=== PATIENT | female | born 1980 | race Two or more races ===

== ENCOUNTER → 2024-07-13 | Outpatient (CLI) | payer MEDICAID, SELFPAY ==
--- NOTE | 2024-07-13 13:00 | XR_ITS ---
Examination: Pelvic ultrasound, transabdominal, complete Technique: Transabdominal ultrasound of the pelvis performed using grayscale imaging Date and time of exam: July 13, 2024 at 1323 hours INDICATIONS: Left pelvic pain beginning 6 months ago FINDINGS: Uterus 11.4 cm endometrial stripe 1.4 cm No uterine mass or intrauterine gestation Right ovary 3.1 cm arterial flow small follicles Left ovary 3.8 cm arterial flow small follicles IMPRESSION: No uterine mass or intrauterine gestation
== END | disposition home or self-care (01) ==
LOC: CDIM 13:01
PROVIDERS: PCP Nurse Practitioner Primary Care; Referring Provider Nurse Practitioner Primary Care; Visit Provider Nurse Practitioner Primary Care
DX: R10.2 Pelvic and perineal pain (principal)
CPT/HCPCS: 76856

== ENCOUNTER → 2024-08-02 | Outpatient (CLI) | payer MEDICAID, SELFPAY ==
--- NOTE | 2024-08-02 14:15 | XR_ITS ---
Examination: Screening digital mammography, bilateral Computer aided detection 3-D breast Tomosynthesis, bilateral Date and time of exam: August 02, 2024 at 1402 hours Compared to mammograms dating to May 26, 2021 Indication: Screening Technique: Nonmagnified MLO, CC views of the breasts to been obtained, reconstructed from 3-D Tomosynthesis images. R2 computer aided detection program utilized for evaluation of suspicious masses and/or abnormal calcifications. 3-D Tomosynthesis images obtained. Findings: The breasts are heterogeneously dense, which may obscure small masses Right breast microclip upper outer right breast posterior depth Benign calcifications The breast architecture is nodular Impression: BI-RADS Category 0: Incomplete: Need additional imaging evaluation The breast architecture is heterogeneously dense and nodular Recommend baseline bilateral breast sonography follow-up, particularly in view of the 9:00 nodule right breast on ultrasound December 11, 2021, biopsied February 05, 2022
== END | disposition home or self-care (01) ==
LOC: CDIM 13:47
PROVIDERS: Referring Provider Nurse Practitioner Primary Care; Visit Provider Nurse Practitioner Primary Care
DX: Z12.31 Encounter for screening mammogram for malignant neoplasm of breast (principal); R92.333 Mammographic heterogeneous density, bilateral breasts; N63.15 Unspecified lump in the right breast, overlapping quadrants
CPT/HCPCS: 77063; 77067

== ENCOUNTER → 2025-01-24 | Outpatient (CLI) | payer MEDICAID, SELFPAY ==
--- NOTE | 2025-01-24 15:30 | XR_ITS ---
Examination: Breast ultrasound complete, bilateral Date and time of exam: January 24, 2025, 1541 hours INDICATIONS: Ultrasound examination December 11, 2021 suspicious mass 9 o'clock position right breast, biopsied February 05, 2022 negative Technique: Real-time grayscale ultrasonographic imaging bilateral breasts, including all 4 quadrants as well as nipple retroareolar and axillary regions. Findings: Sonographic images right breast 2:00 nodule lobular margins 7 x 6 mm 9:00 irregular mass indistinct margins 18 x 9 x 15 mm Sonographic images left breast 6:00 nodule, cystic 5 x 5 mm IMPRESSION: BI-RADS [place] 4: Suspicious for malignancy Suspicious nodule 9 o'clock position right breast rebiopsy of this nodule to exclude breast carcinoma, under ultrasound guidance
== END | disposition home or self-care (01) ==
PROVIDERS: PCP Physician Assistant; Referring Provider Physician Assistant; Visit Provider Physician Assistant
DX: N63.15 Unspecified lump in the right breast, overlapping quadrants (principal)
CPT/HCPCS: 76641